=== PATIENT | female | born 1965 | race Caucasian/White ===

== ENCOUNTER 2019-11-20 14:06 | Outpatient (CLI) | payer OTHER ==
--- NOTE | 2019-11-20 15:04 | MRI ---
Exam: MRI cervical spine without contrast HISTORY: Cervical radiculopathy. Bilateral hand numbness, right greater than left. COMPARISON: None FINDINGS: Straightening of normal cervical lordosis. Intrinsic T1 hypointensity with associated T2 and STIR hy perintensity at the C4 level is favored to be due to atypical hemangioma given findings of trabeculation on the T2-weighted images. Straightening of cervical lordosis is presumed to be positio nal. No significant STIR hyperintensity to suggest ligamentous injury or vertebral body edema Visualized brain parenchyma, cervicomedullary junction, upper cervical cord and the upper thoracic co rd have a normal size and signal intensity. There is T2 hyperintensity involving the cervical cord at the C5-C6 disc space. C2-C3: Broad-based disc bulge abuts the thecal sac. No significant central canal stenosis. Mild right neural foraminal narrowing due to uncovertebral hypertrophy. Patent left neural foramen C3-C4: Broad-based disc bulge abuts the thecal sac. Mild central canal stenosis. Bilaterally, neural foramina are patent C4-C5: Broad-based disc bulge with a left paracentral component abuts the thecal sac. Mild central ca nal stenosis. Bilaterally, neural foramina are patent C5-C6: Desiccation with severe loss of disc space height. Broad-based disc osteophyte complex effaces the subarachnoid space and deforms the cervical cord. There is severe central canal stenosis with T2 hyperintensity in the cord compatible with cord malacia and gliosis. Mild bilateral foraminal narr owing due to uncovertebral hypertrophy C6-C7: Broad-based disc bulge abuts the thecal sac. No significant central canal stenosis. Bilaterall y, neural foramina are patent C7-T1: No significant central canal stenosis or significant neural foraminal narrowing IMPRESSION: 1. Severe central canal stenosis at C5-C6 due to a broad-based disc osteophyte complex. 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 Line 2. 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 Confirmation with cervical spine CT may be beneficial..
== END 2019-11-20 14:07 | disposition home or self-care (01) ==
LOC: TBSIIMAG 14:06
PROVIDERS: ATTEND Neurological Surgery
DX: M47.12 Other spondylosis with myelopathy, cervical region (principal); M47.22 Other spondylosis with radiculopathy, cervical region; M48.02 Spinal stenosis, cervical region; M25.78 Osteophyte, vertebrae; M83.9 Adult osteomalacia, unspecified; G95.89 Other specified diseases of spinal cord
CPT/HCPCS: 72141

== ENCOUNTER 2020-01-13 13:23 | Outpatient (CLI) | payer OTHER ==
--- NOTE | 2020-01-13 14:32 | RAD ---
EXAM: CERVICAL SPINE THREE VIEWS: 01/13/20 HISTORY: Cervical radiculopathy, pain and numbness in arms. Follow-up surgery. FINDINGS: Anterior cervical fusion changes at C5-6 with intradiscal prosthesis. C7-T1 is partially obscured on the lateral view and the odontoid and C1 are partially obscured on the AP open mouth view. No signifi cant prevertebral soft tissue swelling. No evidence for malalignment. IMPRESSION: Anterior cervical fusion changes at C5-6. POS: AH
== END 2020-01-13 13:24 | disposition home or self-care (01) ==
LOC: TBSIIMAG 13:23
PROVIDERS: ATTEND Neurological Surgery
DX: M54.12 Radiculopathy, cervical region (principal); Z98.1 Arthrodesis status
CPT/HCPCS: 72040